=== PATIENT | male | born 1955 | race Caucasian/White ===

== ENCOUNTER 2017-10-07 05:35 | Observation (INO) | payer OTHER ==
[2017-10-07] MEDS ORDERED: NS 1,000 ML IV ONE (05:45)
--- NOTE | 2017-10-07 05:46 | EDPHY ---
H & P Stated Complaint: Lower abd pain. 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 Pain has been persistent it is located in the lower abdomen. Describes achy sensation rather constant and worse this evening. He has not had any vomiting and no diarrhea. Denies urinary symptoms. Denies back pain chest pain or shortness of breath he did have chills. He thinks he may have diverticulitis. His main area pain as across his lower abdomen. States he had a normal bowel movement today. He did not eat anything since 6:30 p.m. Yesterday. Past Medical History: Diverticulitis Past Surgical History: No recent surgery Social History: Denies drugs alcohol tobacco Family History: Noncontributory ROS REVIEW OF SYSTEMS: A comprehensive 10 point review of systems is otherwise negative aside from elements mentioned in the history of present illness. Exam Constitutional he appears well nontoxic no acute distress, triage nursing summary reviewed, vital signs reviewed, awake/alert. Eyes normal conjunctivae and sclera, EOMI, PERRLA. HENT normal inspection, atraumatic, moist mucus membranes, no epistaxis, neck supple/ no meningismus, no raccoon eyes. Respiratory clear to auscultation bilaterally, normal breath sounds, no respiratory distress, no wheezing. Cardiovascular rate normal, regular rhythm, no murmur, no edema, distal pulses normal. Gastrointestinal mild tender palpation lower abdomen and right lower quadrant and left lower quadrant and suprapubic, no peritoneal signs, no rebound, no guarding, normal bowel sounds, no distension, no pulsatile mass. Genitourinary no CVA tenderness. Musculoskeletal no midline vertebral tenderness, full range of motion, no calf swelling, no tenderness of extremities, no meningismus, good pulses, neurovascularly intact. Skin pink, warm, & dry, no rash, skin atraumatic. Neurologic awake, alert and oriented x 3, AAOx3, moves all 4 extremities equally, motor intact, sensory intact, CN II-XII intact, normal cerebellar, normal vision, normal speech. Psychiatric normal mood/affect. Heme/Lymph/Immune no lymphadenopathy. Differential diagnosis includes but is not limited to and in no particular order : Bowel obstruction, appendicitis, gallbladder disease, diverticulitis, colitis , enteritis, perforated viscus, gastritis, GERD, esophagitis, urinary tract infection, pyelonephritis, kidney stones Medical Decision Making: Plan for this patient IV establishment with blood draw , IV fluids 1 L normal saline, IV Dilaudid for pain control IV Zofran 4 mg for nausea, basic blood work, CT scan abdomen pelvis with IV contrast rule out diverticulitis. Re-evaluation: CT abdomen pelvis with IV contrast called to me by Dr. Yarbrough. Shows acute diverticulitis. Uncomplicated. No perforation no abscess no free fluid. Particular ice to the side colon. Given patient's age, pain, he will be admitted to the hospital today for IV antibiotics bowel rest and pain control. He is agreeable this plan. I will consult hospitalist service for admit her acute diverticulitis. Source: Patient - Personal History Current Tetanus/Diphtheria Vaccine: No Current Tetanus Diphtheria and Acellular Pertussis (TDAP): No - Medical/Surgical History Hx Asthma: No Hx Chronic Respiratory Disease: No Hx Diabetes: No Hx Cardiac Disease: No Hx Renal Disease: No Hx Cirrhosis: No Hx Alcoholism: No Hx HIV/AIDS: No Hx Splenectomy or Spleen Trauma: No Other PMH: Diverticulitis, HTN. - Social History Smoking Status: Never smoked Constitutional: Initial Vital Signs Temperature (C) 36.3 C 10/07/17 05:37 Heart Rate 104 H 10/07/17 05:37 Respiratory Rate 16 10/07/17 05:37 Blood Pressure 136/80 H 10/07/17 05:37 O2 Sat (%) 93 10/07/17 05:37 O2 Delivery Mode Room Air Allergies/Adverse Reactions: Penicillins Allergy (Verified 10/07/17 08:23) Hives Home Medications: Medication Instructions Recorded Aspirin [Aspirin 81mg (*)] 81 mg PO DAILY 10/07/17 Cholecalciferol Vit D3 [Vitamin D3 2,000 units PO DAILY 10/07/17 2000 units tab (OTC)] Clobetasol Propionate 1 yoan TP HS PRN 10/07/17 Herbals/Supplements -Info Only 1 ea PO DAILY 10/07/17 Hydrochlorothiazide [HCTZ (*)] 12.5 mg PO DAILY 10/07/17 Ibuprofen [Motrin (*)] 400 mg PO DAILY PRN 10/07/17 Ketoconazole 2% [Nizoral Shampoo 1 yoan TP DAILY PRN 10/07/17 (*)] Lansoprazole [Prevacid] 15 mg PO DAILY 10/07/17 Lisinopril [Zestril 10 mg (*)] 10 mg PO BID 10/07/17 Metoprolol Succinate Xr [Toprol Xl 50 mg PO DAILY 10/07/17 50 mg (*)] Naproxen Sodium [Aleve 220 MG (*)] 220 mg PO BID PRN 10/07/17 [place]-3 Fatty Acids [Fish Oil 1000 1,000 mg PO BID 10/07/17 mg (*)] Rosuvastatin Calcium [Crestor 20mg 20 mg PO HS 10/07/17 (*)] Medical Decision Making - Data Points Laboratory Results: Laboratory Results 10/07/17 06:03 10/07/17 06:03 Medications Given: Hydromorphone HCl (Dilaudid) 2 mg PO Q4HRS PRN PRN Reason: Pain, Severe Able to Take PO Stop: 10/17/17 06:39 Last Admin: 10/07/17 14:28 Dose: 2 mg Hydromorphone/Sodium Chloride (Hydromorphone) 0.2 - 0.4 mg IVP Q4HRS PRN PRN Reason: Pain, Severe Unable to Take PO Stop: 10/17/17 06:39 Last Admin: 10/07/17 18:20 Dose: 0.4 mg Potassium Chloride/Sodium Chloride (Ns W/ 20 Kcl/L) 1,000 mls @ 100 mls/hr IV CONT FRACISCO Stop: 04/05/18 06:44 Last Admin: 10/07/17 19:20 Dose: 1,000 mls Ciprofloxacin/Dextrose (Cipro 400 Mg (Premix)) 200 mls @ 200 mls/hr IV Q12HRS FRACISCO PRN Reason: Protocol Stop: 11/06/17 20:59 Last Admin: 10/07/17 20:00 Dose: 200 mls Lisinopril (Zestril) 10 mg PO BID [facility] Stop: 04/05/18 20:59 Last Admin: 10/07/17 20:00 Dose: 10 mg Naproxen (Aleve) 220 mg PO BID PRN PRN Reason: Pain, Mild Stop: 04/05/18 15:41 Last Admin: 10/07/17 18:19 Dose: 220 mg Qpmeg-6-Hlib Ethyl Esters (Fish Oil) 1,000 mg PO BID [facility]IS[facility] Stop: 04/05/18 20:59 Last Admin: 10/07/17 20:00 Dose: 1,000 mg Rosuvastatin Calcium (Crestor) 20 mg PO HS [facility] Stop: 04/05/18 20:59 Last Admin: 10/07/17 20:02 Dose: 20 mg Discontinued Medications Hydromorphone HCl (Dilaudid) 0.5 mg IVP EDNOW ONE Stop: 10/07/17 05:52 Last Admin: 10/07/17 06:31 Dose: 0.5 mg Sodium Chloride (Ns) 1,000 mls @ 0 mls/hr IV EDNOW ONE; Wide Open PRN Reason: Protocol Stop: 10/07/17 05:46 Last Admin: 10/07/17 06:07 Dose: 1,000 mls Ceftriaxone Sodium/Dextrose (Rocephin 1 Gm (Premix)) 50 mls @ 100 mls/hr IV EDNOW ONE PRN Reason: Protocol Stop: 10/07/17 07:01 Last Admin: 10/07/17 06:38 Dose: 50 mls Metronidazole/Sodium Chloride (Flagyl 500 Mg (Premix)) 100 mls @ 100 mls/hr IV EDNOW ONE PRN Reason: Protocol Stop: 10/07/17 07:31 Last Admin: 10/07/17 07:18 Dose: 100 mls Ondansetron HCl (Zofran) 4 mg IVP EDNOW ONE Stop: 10/07/17 05:52 Last Admin: 10/07/17 06:09 Dose: 4 mg Departure - Departure Disposition: [facility] Inpatient Acute Clinical Impression: Acute diverticulitis Condition: Fair
[2017-10-07] MEDS ORDERED: HYDROmorphONE/DILAUDID 2 MG/ML INJ IVP ONE (05:51)
[2017-10-07] MEDS ORDERED: ONDANSETRON 4 MG/2 ML VIAL IVP ONE (05:51)
[2017-10-07] MEDS ORDERED: IOPAMIDOL (ISOVUE-300) 100 ML BTL ONE (06:01)
[2017-10-07 06:12] LABS: PLATELET COUNT 176 10^3/uL (150-400)
[2017-10-07 06:19] LABS: INR 1.09 (0.83-1.16); PROTIME(PATIENT) 14.3 SEC (12.0-15.0)
[2017-10-07] MEDS ORDERED: PROMETHAZINE HCL 25 MG/ML INJ IVP PRN (06:40)
[2017-10-07] MEDS ORDERED: ONDANSETRON 4 MG/2 ML VIAL IVP PRN (06:40)
[2017-10-07] MEDS ORDERED: ONDANSETRON DISINTEGRATING 4 MG TAB PO PRN (06:40)
[2017-10-07] MEDS ORDERED: ACETAMINOPHEN 325 MG TAB PO PRN (06:40)
--- NOTE | 2017-10-07 07:04 | PDGENHP ---
History and Physical - Chief Complaint Abdominal pain - History of Present Illness 62 yo M w/ HTN presents w/ abdominal pain. He has had lower abdominal pain for 2 days. This morning upon waking it was much worse so he came to the ED instead of going to work. He has had several prior episodes of diverticulitis but has never had pain this severe. CT scan in the ED confirms uncomplicated diverticulitis. He admits to chills but does not think he has been frankly febrile. He was able to keep some rice down last evening but has been nauseous since. History Information - Allergies/Home Medication List Allergies/Adverse Reactions: Penicillins Allergy (Verified 10/07/17 05:41) Home Medications: Aspirin 81mg (*) 10/07/17 [Last Taken Unknown] Clobetasol 0.05% 10/07/17 [Last Taken Unknown] Crestor 10/07/17 [Last Taken Unknown] Hydrochlorothiazide 10/07/17 [Last Taken Unknown] Lisinopril 10/07/17 [Last Taken Unknown] Metoprolol Succinate 10/07/17 [Last Taken Unknown] Prevacid 10/07/17 [Last Taken Unknown] I have personally reviewed and updated: family history, medical history - Past Medical History hypertension - Surgical History Reports: no pertinent surgical hx - Family History Positive for: CAD - Social History Smoking Status: Never smoked Review of Systems Review of Systems: ROS: 10pt was reviewed & negative except for what was stated in HPI & below Physical Exam Physical Exam: Temp Pulse Resp BP Pulse Ox 36.3 C 104 H 16 136/80 H 97 10/07/17 05:37 10/07/17 05:37 10/07/17 05:37 10/07/17 05:37 10/07/17 06:40 O2 (L/minute) 2 Constitutional: no apparent distress, not in pain Eyes: PERRL, EOMI Ears, Nose, Mouth, Throat: moist mucous membranes, no oral mucosal ulcers Cardiovascular: regular rate and rhythym, no murmur, rub, or gallop Respiratory: no respiratory distress, no rales or rhonchi Gastrointestinal: normoactive bowel sounds, tenderness (RLQ, LLQ), No guarding, No rebound, No distension Skin: warm, normal color Musculoskeletal: full muscle strength, no muscle tenderness Neurologic: AAOx3, CN II-XII Intact Psychiatric: interacting appropriately, not anxious Lab Data & Imaging Review 10/07/17 06:03 10/07/17 06:03 WBC 14.49 10^3/uL (3.80-9.50) H 10/07/17 06:03 RBC 4.66 10^6/uL (4.40-6.38) 10/07/17 06:03 Hgb 15.7 g/dL (13.7-17.5) 10/07/17 06:03 POC Hgb 16.0 gm/dL (13.7-17.5) 10/07/17 06:09 Hct 44.3 % (40.0-51.0) 10/07/17 06:03 POC Hct 47 % (40-51) 10/07/17 06:09 MCV 95.1 fL (81.5-99.8) 10/07/17 06:03 MCH 33.7 pg (27.9-34.1) 10/07/17 06:03 MCHC 35.4 g/dL (32.4-36.7) 10/07/17 06:03 RDW 12.2 % (11.5-15.2) 10/07/17 06:03 Plt Count 176 10^3/uL (150-400) 10/07/17 06:03 MPV 10.8 fL (8.7-11.7) 10/07/17 06:03 Neut % (Auto) 87.7 % (39.3-74.2) H 10/07/17 06:03 Lymph % (Auto) 5.9 % (15.0-45.0) L 10/07/17 06:03 Gage % (Auto) 5.2 % (4.5-13.0) 10/07/17 06:03 Eos % (Auto) 0.6 % (0.6-7.6) 10/07/17 06:03 Baso % (Auto) 0.3 % (0.3-1.7) 10/07/17 06:03 Nucleat RBC Rel Count 0.0 % (0.0-0.2) 10/07/17 06:03 Absolute Neuts (auto) 12.70 10^3/uL (1.70-6.50) H 10/07/17 06:03 Absolute Lymphs (auto) 0.86 10^3/uL (1.00-3.00) L 10/07/17 06:03 Absolute Monos (auto) 0.75 10^3/uL (0.30-0.80) 10/07/17 06:03 Absolute Eos (auto) 0.09 10^3/uL (0.03-0.40) 10/07/17 06:03 Absolute Basos (auto) 0.04 10^3/uL (0.02-0.10) 10/07/17 06:03 Absolute Nucleated RBC 0.00 10^3/uL (0-0.01) 10/07/17 06:03 Immature Gran % 0.3 % (0.0-1.1) 10/07/17 06:03 Immature Gran # 0.05 10^3/uL (0.00-0.10) 10/07/17 06:03 PT 14.3 SEC (12.0-15.0) 10/07/17 06:03 INR 1.09 (0.83-1.16) 10/07/17 06:03 APTT 27.2 SEC (23.0-38.0) 10/07/17 06:03 VBG Lactic Acid 2.0 mmol/L (0.7-2.1) 10/07/17 06:04 POC Sodium 137 mEq/L (135-145) 10/07/17 06:09 Sodium 137 mEq/L (135-145) 10/07/17 06:03 POC Potassium 3.5 mEq/L (3.3-5.0) 10/07/17 06:09 Potassium 3.8 mEq/L (3.5-5.2) 10/07/17 06:03 POC Chloride 99 mEq/L (97-110) 10/07/17 06:09 Chloride 101 mEq/L (97-110) 10/07/17 06:03 Carbon Dioxide 26 mEq/l (22-31) 10/07/17 06:03 Anion Gap 10 mEq/L (8-16) 10/07/17 06:03 POC BUN 23 mg/dL (7-23) 10/07/17 06:09 BUN 23 mg/dL (7-23) 10/07/17 06:03 Creatinine 0.9 mg/dL (0.7-1.3) 10/07/17 06:03 POC Creatinine 1.0 mg/dL (0.7-1.3) 10/07/17 06:09 Estimated GFR > 60 10/07/17 06:03 Glucose 133 mg/dL (70-100) H 10/07/17 06:03 POC Glucose 142 mg/dL (70-100) H 10/07/17 06:09 Calcium 9.5 mg/dL (8.5-10.4) 10/07/17 06:03 Total Bilirubin 1.2 mg/dL (0.1-1.4) 10/07/17 06:03 Conjugated Bilirubin 0.4 mg/dL (0.0-0.5) 10/07/17 06:03 Unconjugated Bilirubin 0.8 mg/dL (0.0-1.1) 10/07/17 06:03 AST 37 IU/L (17-59) 10/07/17 06:03 ALT 45 IU/L (21-72) 10/07/17 06:03 Alkaline Phosphatase 60 IU/L (38-126) 10/07/17 06:03 Total Protein 7.0 g/dL (6.3-8.2) 10/07/17 06:03 Albumin 4.1 g/dL (3.5-5.0) 10/07/17 06:03 Lipase 180 IU/L (23-300) 10/07/17 06:03 Assessment & Plan Assessment: 62 yo M presenting w/ abdominal pain found to have acute diverticulitis. Plan: 1. Acute diverticulitis - Uncomplicated per discussion with ED physician Dr. Tello, although final CT read is pending. He has had several prior episodes of diverticulitis, never complicated or requiring surgery. - Clear liquid diet, ADAT - mIVF w/ K, anti-emetics PRN - Dilaudid PO/IV for pain control 2. HTN - Continue home medications Diet - Clears, ADAT Code - Full Ppx - SCDs Dispo - Admit under observation status
--- NOTE | 2017-10-07 07:07 | PDGENHP ---
History and Physical - Chief Complaint Abdomina - History of Present Illness History Information - Allergies/Home Medication List Allergies/Adverse Reactions: Penicillins Allergy (Verified 10/07/17 05:41) Home Medications: Aspirin 81mg (*) 10/07/17 [Last Taken Unknown] Clobetasol 0.05% 10/07/17 [Last Taken Unknown] Crestor 10/07/17 [Last Taken Unknown] Hydrochlorothiazide 10/07/17 [Last Taken Unknown] Lisinopril 10/07/17 [Last Taken Unknown] Metoprolol Succinate 10/07/17 [Last Taken Unknown] Prevacid 10/07/17 [Last Taken Unknown] - Social History Smoking Status: Never smoked Review of Systems Review of Systems: Physical Exam Physical Exam: Temp Pulse Resp BP Pulse Ox 36.3 C 104 H 16 136/80 H 97 10/07/17 05:37 10/07/17 05:37 10/07/17 05:37 10/07/17 05:37 10/07/17 06:40 O2 (L/minute) 2 Lab Data & Imaging Review 10/07/17 06:03 10/07/17 06:03 WBC 14.49 10^3/uL (3.80-9.50) H 10/07/17 06:03 RBC 4.66 10^6/uL (4.40-6.38) 10/07/17 06:03 Hgb 15.7 g/dL (13.7-17.5) 10/07/17 06:03 POC Hgb 16.0 gm/dL (13.7-17.5) 10/07/17 06:09 Hct 44.3 % (40.0-51.0) 10/07/17 06:03 POC Hct 47 % (40-51) 10/07/17 06:09 MCV 95.1 fL (81.5-99.8) 10/07/17 06:03 MCH 33.7 pg (27.9-34.1) 10/07/17 06:03 MCHC 35.4 g/dL (32.4-36.7) 10/07/17 06:03 RDW 12.2 % (11.5-15.2) 10/07/17 06:03 Plt Count 176 10^3/uL (150-400) 10/07/17 06:03 MPV 10.8 fL (8.7-11.7) 10/07/17 06:03 Neut % (Auto) 87.7 % (39.3-74.2) H 10/07/17 06:03 Lymph % (Auto) 5.9 % (15.0-45.0) L 10/07/17 06:03 [place] % (Auto) 5.2 % (4.5-13.0) 10/07/17 06:03 Eos % (Auto) 0.6 % (0.6-7.6) 10/07/17 06:03 Baso % (Auto) 0.3 % (0.3-1.7) 10/07/17 06:03 Nucleat RBC Rel Count 0.0 % (0.0-0.2) 10/07/17 06:03 Absolute Neuts (auto) 12.70 10^3/uL (1.70-6.50) H 10/07/17 06:03 Absolute Lymphs (auto) 0.86 10^3/uL (1.00-3.00) L 10/07/17 06:03 Absolute Monos (auto) 0.75 10^3/uL (0.30-0.80) 10/07/17 06:03 Absolute Eos (auto) 0.09 10^3/uL (0.03-0.40) 10/07/17 06:03 Absolute Basos (auto) 0.04 10^3/uL (0.02-0.10) 10/07/17 06:03 Absolute Nucleated RBC 0.00 10^3/uL (0-0.01) 10/07/17 06:03 Immature Gran % 0.3 % (0.0-1.1) 10/07/17 06:03 Immature Gran # 0.05 10^3/uL (0.00-0.10) 10/07/17 06:03 PT 14.3 SEC (12.0-15.0) 10/07/17 06:03 INR 1.09 (0.83-1.16) 10/07/17 06:03 APTT 27.2 SEC (23.0-38.0) 10/07/17 06:03 VBG Lactic Acid 2.0 mmol/L (0.7-2.1) 10/07/17 06:04 POC Sodium 137 mEq/L (135-145) 10/07/17 06:09 Sodium 137 mEq/L (135-145) 10/07/17 06:03 POC Potassium 3.5 mEq/L (3.3-5.0) 10/07/17 06:09 Potassium 3.8 mEq/L (3.5-5.2) 10/07/17 06:03 POC Chloride 99 mEq/L (97-110) 10/07/17 06:09 Chloride 101 mEq/L (97-110) 10/07/17 06:03 Carbon Dioxide 26 mEq/l (22-31) 10/07/17 06:03 Anion Gap 10 mEq/L (8-16) 10/07/17 06:03 POC BUN 23 mg/dL (7-23) 10/07/17 06:09 BUN 23 mg/dL (7-23) 10/07/17 06:03 Creatinine 0.9 mg/dL (0.7-1.3) 10/07/17 06:03 POC Creatinine 1.0 mg/dL (0.7-1.3) 10/07/17 06:09 Estimated GFR > 60 10/07/17 06:03 Glucose 133 mg/dL (70-100) H 10/07/17 06:03 POC Glucose 142 mg/dL (70-100) H 10/07/17 06:09 Calcium 9.5 mg/dL (8.5-10.4) 10/07/17 06:03 Total Bilirubin 1.2 mg/dL (0.1-1.4) 10/07/17 06:03 Conjugated Bilirubin 0.4 mg/dL (0.0-0.5) 10/07/17 06:03 Unconjugated Bilirubin 0.8 mg/dL (0.0-1.1) 10/07/17 06:03 AST 37 IU/L (17-59) 10/07/17 06:03 ALT 45 IU/L (21-72) 10/07/17 06:03 Alkaline Phosphatase 60 IU/L (38-126) 10/07/17 06:03 Total Protein 7.0 g/dL (6.3-8.2) 10/07/17 06:03 Albumin 4.1 g/dL (3.5-5.0) 10/07/17 06:03 Lipase 180 IU/L (23-300) 10/07/17 06:03 Assessment & Plan Assessment: Acute diverticulitis (Acute)
[2017-10-07] MEDS: NS W/ 20 KCl/L 1,000 ML IV SCH ×2 (09:45→19:20)
[2017-10-07] MEDS: HYDROmorphone HCL/NS 0.5 MG/ML SYR IVP PRN ×2 (10:40→18:20)
[2017-10-07] MEDS: HYDROmorphONE/DILAUDID 2 MG TAB PO PRN ×2 (14:28→22:07)
[2017-10-07] MEDS ORDERED: KETOCONAZOLE 2% 120 ML SHAMPOO TP PRN (15:42)
[2017-10-07] MEDS ORDERED: CLOBETASOL PROPIONATE TP PRN (15:42)
[2017-10-07] MEDS ORDERED: CLOBETASOL 0.05% 15 GM CRTUBE TP PRN (15:53)
[2017-10-07] MEDS: NAPROXEN SODIUM 220 MG TAB PO PRN (18:19)
[2017-10-07] MEDS: LISINOPRIL 10 MG TAB PO SCH (20:00)
[2017-10-07] MEDS: OMEGA-3 FATTY ACIDS 1,000 MG CAP PO SCH (20:00)
[2017-10-07] MEDS: CIPROFLOXACIN 400 MG/DEXTROSE 200 ML IV SCH (20:00)
[2017-10-07] MEDS ORDERED: ROSUVASTATIN CALCIUM 20 MG TAB PO SCH (21:00)
[2017-10-08] MEDS: NAPROXEN SODIUM 220 MG TAB PO PRN ×2 (01:51→08:11)
[2017-10-08 07:57] VITALS: BP 112/72
[2017-10-08] MEDS: LISINOPRIL 10 MG TAB PO SCH (08:10)
[2017-10-08] MEDS: OMEGA-3 FATTY ACIDS 1,000 MG CAP PO SCH (08:11)
[2017-10-08] MEDS: NS W/ 20 KCl/L 1,000 ML IV SCH (08:12)
[2017-10-08] MEDS: CIPROFLOXACIN 400 MG/DEXTROSE 200 ML IV SCH (08:21)
[2017-10-08] MEDS ORDERED: Herbals/Supplements -Info Only PO SCH (09:00)
[2017-10-08] MEDS ORDERED: HYDROCHLOROTHIAZIDE 12.5 MG CAP PO SCH (09:00)
[2017-10-08] MEDS ORDERED: PANTOPRAZOLE SODIUM 40 MG TAB PO SCH (09:00)
[2017-10-08] MEDS ORDERED: ASPIRIN 81 MG CHEWABLE TAB PO SCH (09:00)
[2017-10-08] MEDS ORDERED: CHOLECALCIFEROL VIT D3 2,000 UNITS TAB/CAP PO SCH (09:00)
[2017-10-08] MEDS ORDERED: NON-FORMULARY NEW DRUG (Lansoprazole [Prevacid] 15 MG) PO SCH (09:00)
[2017-10-08] MEDS ORDERED: METOPROLOL SUCCINATE XR 50 MG TAB PO SCH (09:00)
--- NOTE | 2017-10-08 09:11 | ASMTCMCOM ---
CM Note CM Note Notes: Patient admitted for abdominal pain and diagnosed with acute diverticulitis. He is being observed on a clear liquid diet, IV fluids, and pain medications. Patient is normally independent, lives with , and is employed. I do not anticipate any discharge needs. Date Signed: 10/08/2017 09:11 AM Electronically Signed By:Enid Lai RN
--- NOTE | 2017-10-08 09:13 | HOSPPROG ---
Hospitalist Progress Note Assessment/Plan: 62 yo M w diverticulitis home today see dc summary Objective: Vital Signs Temp Pulse Resp BP Pulse Ox 36.5 C 75 18 112/72 94 10/08/17 07:55 10/08/17 08:11 10/08/17 07:55 10/08/17 08:12 10/08/17 07:55 10/07/17 10/08/17 10/09/17 05:59 05:59 05:59 Intake Total 3900 Balance 3900 PT 14.3 SEC (12.0-15.0) 10/07/17 06:03 INR 1.09 (0.83-1.16) 10/07/17 06:03 - Physical Exam Constitutional: no apparent distress, appears nourished Eyes: PERRL, anicteric sclera Ears, Nose, Mouth, Throat: moist mucous membranes, hearing normal Cardiovascular: regular rate and rhythym, no murmur, rub, or gallop Respiratory: no respiratory distress, no rales or rhonchi Gastrointestinal: normoactive bowel sounds, soft, non-tender abdomen Genitourinary: no bladder fullness, No basurto in urethra Skin: warm, normal color Musculoskeletal: full muscle strength Neurologic: AAOx3, sensation intact bilaterally Psychiatric: interacting appropriately ICD10 Worksheet Patient Problems: Problems Problem Status Onset Acute diverticulitis Acute
[2017-10-08] MEDS ORDERED: NAPROXEN SODIUM 220 MG TAB PO ONE (10:15)
--- NOTE | 2017-10-09 02:17 | GDS ---
[f rep st] DISCHARGE SUMMARY DISCHARGE DIAGNOSES: Mild sigmoid diverticulitis. Please see admission history and physical by Dr. Hernan Lopez. Patient presented with left l ower quadrant pain. It sounds like he has had episodes of diverticulitis he has managed at home with out antibiotics, just liquids and NSAIDs. The patient presented. He had a leukocytosis. He was not febrile. He did have abdominal pain without peritoneal signs. He had a CT scan showing mild sigmoi d diverticulitis. He was started on ceftriaxone, Flagyl, transition to Cipro, Flagyl. Discharged ho me today after tolerating a good diet. He was given warning signs to come back. /[id number]/MODL
== END 2017-10-08 11:52 | disposition home or self-care (01) ==
LOC: F1N 09:26
PROVIDERS: ADMIT Student in an Organized Health Care Education/Training Program; ATTEND Internal Medicine
DX: K57.32 Diverticulitis of large intestine without perforation or abscess without bleeding (principal); E86.9 Volume depletion, unspecified; I10 Essential (primary) hypertension; Z82.49 Family history of ischemic heart disease and other diseases of the circulatory system; Z88.0 Allergy status to penicillin
CPT/HCPCS: 74177; 96361; 96374; 96375; 99285; G0378; 82947-QW; J0696; J0744; J1170; J2405; Q9967

== ENCOUNTER 2017-10-10 17:20 | Inpatient (IN) | payer OTHER ==
[2017-10-10] MEDS ORDERED: NS 1,000 ML IV ONE (18:21)
--- NOTE | 2017-10-10 18:21 | EDPHY ---
H & P Stated Complaint: N/V/D abd bloating contiues--10/08/17 diverticulitus - Medical/Surgical History Hx Asthma: No Hx Chronic Respiratory Disease: No Hx Diabetes: No Hx Cardiac Disease: No Hx Renal Disease: No Hx Cirrhosis: No Hx Alcoholism: No Hx HIV/AIDS: No Hx Splenectomy or Spleen Trauma: No Other PMH: Diverticulitis, HTN. - Social History Smoking Status: Never smoked Time Seen by Provider: 10/10/17 18:07 HPI/ROS: CHIEF COMPLAINT: Abdominal pain nausea vomiting diarrhea HISTORY OF PRESENT ILLNESS: 62-year-old male history of recurrent diverticulitis discharged from the hospital 2 days ago for mild sigmoid diverticulitis without perforation and/or abscess, returns to the ER stating that he has had progressive abdominal pain since being discharged. He had solid bowel movements upon discharge and notes that he has new diarrhea, new abdominal distension, new diffuse abdominal pain, nausea, vomiting. He has been unable to tolerate his antibiotics. He last ate 3 saltine crackers at 7: 00 a.m. This morning. Denies: Fever, chills, back pain, urinary abnormality. REVIEW OF SYSTEMS: A ten point review of systems was performed and is negative with the exception of the items mentioned in the HPI PAST MEDICAL & SURGICAL HISTORY: Recurrent diverticulitis. SOCIAL HISTORY: Nonsmoker PHYSICAL EXAM (Prior to examination, patient consented to physical exam, hands were washed and my usual and customary physical exam procedures followed) 1) GENERAL: Well-developed, well-nourished, alert and oriented. Appears to be in no acute distress. 2) HEAD: Normocephalic, atraumatic 3) HEENT: Pupils equal, round, reactive to light bilaterally. Sclera anicteric. Nasopharynx, oropharynx, clear, no lesions. Dry mucous membranes 4) NECK: Full range of motion, no meningeal signs. 5) LUNGS: Clear auscultation bilaterally, no wheezes, no rhonchi, no retractions. 6) HEART: Regular rate and rhythm, no murmur, no heave, no gallop. 7) ABDOMEN: Distended, diffusely tender to palpation all quadrants 8) MUSCULOSKELETAL: Moving all extremities, no focal areas of tenderness, no obvious trauma. No peripheral edema or discoloration. 9) BACK: No CVA tenderness, no midline vertebral tenderness, no fluctuance, no step-off, no obvious trauma, no visual or palpable abnormality. 10) SKIN: No rash, no petechiae. 11) Psychiatric: Patient is oriented X 3, there is no agitation. DIFFERENTIAL DIAGNOSIS: In no particular include but limited to intra- abdominal abscess, perforation, diverticulitis (Erum,Yousuf Claudia) Constitutional: Initial Vital Signs Temperature (C) 36.6 C 10/10/17 17:25 Heart Rate 108 H 10/10/17 17:25 Respiratory Rate 16 10/10/17 17:25 Blood Pressure 126/83 H 10/10/17 17:25 O2 Sat (%) 96 10/10/17 17:25 O2 Delivery Mode Room Air Allergies/Adverse Reactions: Penicillins Allergy (Verified 10/07/17 08:23) Hives Home Medications: Medication Instructions Recorded Aspirin [Aspirin 81mg (*)] 81 mg PO DAILY 10/07/17 Cholecalciferol Vit D3 [Vitamin D3 2,000 units PO DAILY 10/07/17 2000 units tab (OTC)] Herbals/Supplements -Info Only 1 ea PO DAILY 10/07/17 Hydrochlorothiazide [HCTZ (*)] 12.5 mg PO DAILY 10/07/17 Lansoprazole [Prevacid] 15 mg PO DAILY 10/07/17 Lisinopril [Zestril 10 mg (*)] 10 mg PO BID 10/07/17 Metoprolol Succinate Xr [Toprol Xl 50 mg PO DAILY 10/07/17 50 mg (*)] Rosuvastatin Calcium [Crestor 20mg 20 mg PO HS 10/07/17 (*)] Ciprofloxacin [Cipro] 500 mg PO BID #20 tab 10/08/17 metroNIDAZOLE [Flagyl 500 mg (*)] 500 mg PO TID #30 tab 10/08/17 Medical Decision Making ED Course/Re-evaluation: 6:20 p.m.: I reviewed the patient's old medical records and discussed case with secondary supervising physician Dr. Juliette Juarez in the ER. This patient is complaining of new diarrhea perc new, progressive diffuse abdominal pain which is very different than what he presents to the emergency department with. Expressed the patient my concerns that he may have perforation and/or abscess. In addition he has been unable to tolerate his oral antibiotics. He will be given IV ceftriaxone and Flagyl in the emergency department. Will plan on likely admission. 7:00 p.m.: Patient was re-evaluated with serial examinations, he is continuing to complain of diffuse abdominal pain. I recommended CT imaging of the abdomen and pelvis to evaluate for possible intra-abdominal abscess or perforation 7:45 p.m.: CT of abdomen pelvis foreign language interpreter radiologist shows new mesenteric free air, new intra-abdominal abscess. Patient has already received IV antibiotics. Will consult with on-call surgery. 7:55 p.m.: Consultation with Dr. Gresham who will admit patient, plan on taking patient the operating room this evening.. Patient remains NPO since 7: 00 a.m. Today (Yousuf Danielson) Other Provider: The patient was evaluated and managed by the Physician Regulatory Compliance Specialist. I discussed the patient's presentation and course with the physician medication assistant and agree with the evaluation. My co-signature indicates that I have reviewed this chart and I agree with the findings and plan of care as documented. I am the secondary supervising physician. (Juliette Juarez) - Data Points Laboratory Results: Laboratory Results 10/10/17 18:37 10/10/17 18:37 Microbiology Results: MICROBIOLOGY 10/10/17 22:08 Peritoneal Fluid - Anaerobic Tube/Swab Gram Stain - Final 10/10/17 22:08 Peritoneal Fluid - Anaerobic Tube/Swab Anaerobic Culture - Preliminary Escherichia Coli Enterococcus Faecium Bacteroides [facility] Medications Given: Acetaminophen (Tylenol) 650 mg PO Q4HRS PRN PRN Reason: Pain, Mild/Fever, Can Take PO Stop: 04/08/18 23:41 Last Admin: 10/11/17 10:34 Dose: 650 mg Aspirin (Aspirin) 81 mg PO DAILY FRACISCO Stop: 04/10/18 08:59 Last Admin: 10/12/17 08:19 Dose: 81 mg Hydrochlorothiazide (Microzide) 12.5 mg PO DAILY FRACISCO Stop: 04/10/18 08:59 Last Admin: 10/12/17 08:18 Dose: 12.5 mg Hydromorphone/Sodium Chloride (Hydromorphone) 0.5 mg IVP Q2 PRN PRN Reason: SEVERE PAIN, CAN'T TAKE PO Stop: 10/21/17 22:33 Last Admin: 10/12/17 17:22 Dose: 0.5 mg Potassium Chloride/Dextrose/Sod Cl (D5w 1/2 Ns W/ 20 Kcl/L) 1,000 mls @ 100 mls /hr IV CONT FRACISCO Stop: 04/08/18 23:44 Last Admin: 10/12/17 17:23 Dose: 1,000 mls Ceftriaxone Sodium/Dextrose (Rocephin 1 Gm (Premix)) 50 mls @ 100 mls/hr IV DAILY FRACISCO PRN Reason: Protocol Stop: 11/10/17 08:59 Last Admin: 10/12/17 08:18 Dose: 50 mls Metronidazole/Sodium Chloride (Flagyl 500 Mg (Premix)) 100 mls @ 100 mls/hr IV Q8HRS FRACISCO PRN Reason: Protocol Stop: 11/10/17 05:59 Last Admin: 10/12/17 15:05 Dose: 100 mls Lisinopril (Zestril) 10 mg PO BID FRACISCO Stop: 04/09/18 20:59 Last Admin: 10/12/17 08:19 Dose: 10 mg Metoprolol Succinate (Toprol Xl) 50 mg PO DAILY FRACISCO Stop: 04/10/18 08:59 Last Admin: 10/12/17 08:19 Dose: 50 mg Ondansetron HCl (Zofran) 4 mg IVP Q4HRS PRN PRN Reason: Nausea/Vomiting, Can't Take PO Stop: 04/08/18 23:41 Last Admin: 10/12/17 17:22 Dose: 4 mg Ondansetron HCl (Zofran Odt) 4 mg PO Q4HRS PRN PRN Reason: Nausea/Vomiting, Use 1st Stop: 04/08/18 23:41 Last Admin: 10/11/17 20:17 Dose: 4 mg Oxycodone HCl (Oxycodone Ir) 5 - 10 mg PO Q3HRS PRN PRN Reason: Pain, Severe Able to Take PO Stop: 10/20/17 23:41 Last Admin: 10/11/17 18:58 Dose: 10 mg Pantoprazole Sodium (Protonix) 40 mg IVP DAILY FRACISCO Stop: 04/09/18 16:14 Last Admin: 10/12/17 08:18 Dose: 40 mg Promethazine HCl (Phenergan) 6.25 - 12.5 mg IVP Q6HRS PRN PRN Reason: Nausea/Vomiting, Use 2nd Stop: 04/08/18 23:41 Last Admin: 10/12/17 04:44 Dose: 12.5 mg Discontinued Medications Bupivacaine HCl (Sensorcaine 0.25% Sdv) Confirm Administered Dose 30 ml .ROUTE .STK-MED ONE Stop: 10/10/17 21:06 Last Admin: 10/10/17 22:23 Dose: 30 ml Epinephrine HCl (Epinephrine) Confirm Administered Dose 1 mg .ROUTE .STK-MED ONE Stop: 10/10/17 21:06 Last Admin: 10/10/17 22:24 Dose: 1 mg Ceftriaxone Sodium/Dextrose (Rocephin 1 Gm (Premix)) 50 mls @ 100 mls/hr IV EDNOW ONE PRN Reason: Protocol Stop: 10/10/17 18:47 Last Admin: 10/10/17 18:50 Dose: 50 mls Metronidazole/Sodium Chloride (Flagyl 500 Mg (Premix)) 100 mls @ 100 mls/hr IV ONCE ONE PRN Reason: Protocol Stop: 10/10/17 19:17 Last Admin: 10/10/17 19:38 Dose: 100 mls Sodium Chloride (Ns) 1,000 mls @ 0 mls/hr IV ONCE ONE PRN Reason: Wide Open Stop: 10/10/17 18:22 Last Admin: 10/10/17 18:49 Dose: 1,000 mls Lactated Ringer's (Lr) 1,000 mls @ 0 mls/hr IV ONCE ONE PRN Reason: KVO Stop: 10/10/17 21:19 Last Admin: 10/10/17 21:20 Dose: 1,000 mls Sodium Chloride (Ns) 1,000 mls @ 0 mls/hr IV ONCE ONE PRN Reason: As Directed Stop: 10/11/17 04:31 Last Admin: 10/11/17 04:31 Dose: 1,000 mls Midazolam HCl (Versed) 2 mg IVP ONCE ONE Stop: 10/10/17 21:24 Last Admin: 10/10/17 21:34 Dose: 2 mg Ondansetron HCl (Zofran) 4 mg IVP EDNOW ONE Stop: 10/10/17 18:43 Last Admin: 10/10/17 18:52 Dose: 4 mg Departure - Departure Disposition: [facility] Inpatient Acute Clinical Impression: Acute diverticulitis, Colonic diverticular abscess, Perforation of viscus Condition: Fair
[2017-10-10] MEDS ORDERED: ONDANSETRON 4 MG/2 ML VIAL IVP ONE (18:42)
[2017-10-10 18:47] LABS: PLATELET COUNT 209 10^3/uL (150-400)
[2017-10-10] MEDS ORDERED: IOPAMIDOL (ISOVUE-300) 100 ML BTL ONE (19:04)
[2017-10-10 20:05] LABS: INR 1.22 (0.83-1.16); PROTIME(PATIENT) 15.6 SEC (12.0-15.0)
--- NOTE | 2017-10-10 20:56 | PDGENHP ---
History and Physical - Chief Complaint abdominal pain - History of Present Illness Patient was admitted here Friday through Friday for diverticulitis. He was treated with IV and transitioned to PO abx. The evening he went home, he c/o worsening pain. He c/o diffuse abdominal pain, nausea, vomiting. Pain is sharp, diffuse, worse with PO intake and palpation. History Information - Allergies/Home Medication List Allergies/Adverse Reactions: Penicillins Allergy (Verified 10/07/17 08:23) Hives Home Medications: Aspirin [Aspirin 81mg (*)] 81 mg PO DAILY 10/07/17 [Last Taken 10/07/17] Cholecalciferol Vit D3 [Vitamin D3 2000 units tab (OTC)] 2,000 units PO DAILY [Last Taken 10/07/17] Clobetasol Propionate 1 yoan TP HS PRN 10/07/17 [Last Taken 10/06/17] Herbals/Supplements -Info Only 1 ea PO DAILY 10/07/17 [Last Taken Unknown] Hydrochlorothiazide [HCTZ (*)] 12.5 mg PO DAILY 10/07/17 [Last Taken 10/07/17] Ketoconazole 2% [Nizoral Shampoo (*)] 1 yoan TP DAILY PRN 10/07/17 [Last Taken Unknown] Lansoprazole [Prevacid] 15 mg PO DAILY 10/07/17 [Last Taken 10/07/17] Lisinopril [Zestril 10 mg (*)] 10 mg PO BID 10/07/17 [Last Taken 10/07/17] Metoprolol Succinate Xr [Toprol Xl 50 mg (*)] 50 mg PO DAILY 10/07/17 [Last Taken 10/07/17] Naproxen Sodium [Aleve 220 MG (*)] 220 mg PO BID PRN 10/07/17 [Last Taken 03:30] [place]-3 Fatty Acids [Fish Oil 1000 mg (*)] 1,000 mg PO BID 10/07/17 [Last Taken 10/07/17] Rosuvastatin Calcium [Crestor 20mg (*)] 20 mg PO HS 10/07/17 [Last Taken ] I have personally reviewed and updated: family history, medical history, social history, surgical history - Past Medical History hypertension - Surgical History Reports: no pertinent surgical hx - Family History Positive for: CAD - Social History Smoking Status: Never smoked 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 Review of Systems Review of Systems: ROS: 10pt was reviewed & negative except for what was stated in HPI & below Physical Exam Physical Exam: Temp Pulse Resp BP Pulse Ox 36.6 C 80 18 131/79 H 92 10/10/17 17:25 10/10/17 19:40 10/10/17 19:40 10/10/17 19:40 10/10/17 19:40 Constitutional: appears nourished, not in pain, other (mild distress) Eyes: PERRL, anicteric sclera, EOMI Ears, Nose, Mouth, Throat: moist mucous membranes, hearing normal, ears appear normal, no oral mucosal ulcers Cardiovascular: regular rate and rhythym, no murmur, rub, or gallop, No edema Respiratory: no respiratory distress, no rales or rhonchi, clear to auscultation Gastrointestinal: other (soft, TTP, rebound tenderness present ) Genitourinary: no bladder fullness, no bladder tenderness Skin: warm, normal color, no rashes or abrasions, no fluctuance, no induration, No mottled Musculoskeletal: full muscle strength, no muscle tenderness, normal joint ROM, no joint effusions Psychiatric: interacting appropriately, not anxious, not encephalopathic, thought process linear Lymph, Heme, Immunologic: no cervical LAD, no supraclavicular LAD Lab Data & Imaging Review 10/10/17 18:37 10/10/17 18:37 WBC 15.21 10^3/uL (3.80-9.50) H 10/10/17 18:37 RBC 4.57 10^6/uL (4.40-6.38) 10/10/17 18:37 Hgb 15.1 g/dL (13.7-17.5) 10/10/17 18:37 Hct 43.0 % (40.0-51.0) 10/10/17 18:37 MCV 94.1 fL (81.5-99.8) 10/10/17 18:37 MCH 33.0 pg (27.9-34.1) 10/10/17 18:37 MCHC 35.1 g/dL (32.4-36.7) 10/10/17 18:37 RDW 12.2 % (11.5-15.2) 10/10/17 18:37 Plt Count 209 10^3/uL (150-400) 10/10/17 18:37 MPV 11.0 fL (8.7-11.7) 10/10/17 18:37 Neut % (Auto) 84.1 % (39.3-74.2) H 10/10/17 18:37 Lymph % (Auto) 6.9 % (15.0-45.0) L 10/10/17 18:37 [place] % (Auto) 7.1 % (4.5-13.0) 10/10/17 18:37 Eos % (Auto) 0.9 % (0.6-7.6) 10/10/17 18:37 Baso % (Auto) 0.3 % (0.3-1.7) 10/10/17 18:37 Nucleat RBC Rel Count 0.0 % (0.0-0.2) 10/10/17 18:37 Absolute Neuts (auto) 12.80 10^3/uL (1.70-6.50) H 10/10/17 18:37 Absolute Lymphs (auto) 1.05 10^3/uL (1.00-3.00) 10/10/17 18:37 Absolute Monos (auto) 1.08 10^3/uL (0.30-0.80) H 10/10/17 18:37 Absolute Eos (auto) 0.14 10^3/uL (0.03-0.40) 10/10/17 18:37 Absolute Basos (auto) 0.04 10^3/uL (0.02-0.10) 10/10/17 18:37 Absolute Nucleated RBC 0.00 10^3/uL (0-0.01) 10/10/17 18:37 Immature Gran % 0.7 % (0.0-1.1) 10/10/17 18:37 Immature Gran # 0.10 10^3/uL (0.00-0.10) 10/10/17 18:37 PT 15.6 SEC (12.0-15.0) H 10/10/17 17:20 INR 1.22 (0.83-1.16) H 10/10/17 17:20 APTT 33.5 SEC (23.0-38.0) 10/10/17 17:20 Sodium 135 mEq/L (135-145) 10/10/17 18:37 Potassium 3.9 mEq/L (3.5-5.2) 10/10/17 18:37 Chloride 95 mEq/L (97-110) L 10/10/17 18:37 Carbon Dioxide 23 mEq/l (22-31) 10/10/17 18:37 Anion Gap 17 mEq/L (8-16) H 10/10/17 18:37 BUN 14 mg/dL (7-23) 10/10/17 18:37 Creatinine 0.9 mg/dL (0.7-1.3) 10/10/17 18:37 Estimated GFR > 60 10/10/17 18:37 Glucose 106 mg/dL (70-100) H 10/10/17 18:37 Calcium 9.2 mg/dL (8.5-10.4) 10/10/17 18:37 Total Bilirubin 1.0 mg/dL (0.1-1.4) 10/10/17 18:37 Conjugated Bilirubin 0.6 mg/dL (0.0-0.5) H 10/10/17 18:37 Unconjugated Bilirubin 0.4 mg/dL (0.0-1.1) 10/10/17 18:37 AST 25 IU/L (17-59) 10/10/17 18:37 ALT 40 IU/L (21-72) 10/10/17 18:37 Alkaline Phosphatase 60 IU/L (38-126) 10/10/17 18:37 Total Protein 6.3 g/dL (6.3-8.2) 10/10/17 18:37 Albumin 3.4 g/dL (3.5-5.0) L 10/10/17 18:37 Lipase 79 IU/L (23-300) 10/10/17 18:37 Visualized and Interpreted imaging results: Yes Interpretation: CT: perforated diverticulitis with abscess. Assessment & Plan Assessment: Acute diverticulitis (Acute) Colonic diverticular abscess (Acute) Perforation of viscus (Acute) Plan: 62yo male with perforated diverticulitis with localized abscess - IV abx now, to OR for ex lap, colectomy, possible colostomy. RBA discussed including the high likelihood for temporary ostomy.
[2017-10-10] MEDS ORDERED: BUPIVACAINE 0.25% 30 ML SDV ONE (21:05)
[2017-10-10] MEDS ORDERED: LR 1,000 ML IV ONE (21:18)
[2017-10-10] MEDS ORDERED: MIDAZOLAM 2 MG/2 ML VIAL IVP ONE (21:23)
--- NOTE | 2017-10-10 21:26 | PDANEPAE ---
ANE History of Present Illness perforated bowel ANE Past Medical History - Cardiovascular History Hx Hypertension: Yes Hx Arrhythmias: No Hx Chest Pain: No Hx Coronary Artery / Peripheral Vascular Disease: No Hx CHF / Valvular Disease: No Hx Palpitations: No - Pulmonary History Hx COPD: No Hx Asthma/Reactive Airway Disease: No Hx Recent Upper Respiratory Infection: No Hx Oxygen in Use at Home: No Hx Sleep Apnea: No - Endocrine History Hx Diabetes: No Hypothyroid: No Hyperthyroid: No - Renal History Hx Renal Disorders: No - Liver History Hx Hepatic Disorders: No - Neurological & Psychiatric Hx Hx Neurological and Psychiatric Disorders: No - Chronic Pain History Chronic Pain: No ANE Review of Systems Review of Systems: - Exercise capacity Exercise capacity: >=4 METS - Systems Gastrointestinal: Reports: abdominal pain ANE Patient History - Allergies Allergies/Adverse Reactions: Penicillins Allergy (Verified 10/07/17 08:23) Hives - Home Medications Home Medications: Aspirin [Aspirin 81mg (*)] 81 mg PO DAILY 10/07/17 [Last Taken 10/07/17] Cholecalciferol Vit D3 [Vitamin D3 2000 units tab (OTC)] 2,000 units PO DAILY [Last Taken 10/07/17] Clobetasol Propionate 1 yoan TP HS PRN 10/07/17 [Last Taken 10/06/17] Herbals/Supplements -Info Only 1 ea PO DAILY 10/07/17 [Last Taken Unknown] Hydrochlorothiazide [HCTZ (*)] 12.5 mg PO DAILY 10/07/17 [Last Taken 10/07/17] Ketoconazole 2% [Nizoral Shampoo (*)] 1 yoan TP DAILY PRN 10/07/17 [Last Taken Unknown] Lansoprazole [Prevacid] 15 mg PO DAILY 10/07/17 [Last Taken 10/07/17] Lisinopril [Zestril 10 mg (*)] 10 mg PO BID 10/07/17 [Last Taken 10/07/17] Metoprolol Succinate Xr [Toprol Xl 50 mg (*)] 50 mg PO DAILY 10/07/17 [Last Taken 10/07/17] Naproxen Sodium [Aleve 220 MG (*)] 220 mg PO BID PRN 10/07/17 [Last Taken 03:30] [place]-3 Fatty Acids [Fish Oil 1000 mg (*)] 1,000 mg PO BID 10/07/17 [Last Taken 10/07/17] Rosuvastatin Calcium [Crestor 20mg (*)] 20 mg PO HS 10/07/17 [Last Taken ] - NPO status NPO Status: no food or drink >8 hours NPO Since - Liquids (Date): 10/10/17 NPO Since - Liquids (Time): 07:00 NPO Since - Solids (Date): 10/10/17 NPO Since - Solids (Time): 07:00 - Anes Hx Anes Hx: no prior problems - Smoking Hx Smoking Status: Never smoked - Alcohol Use Alcohol Use: None - Family Anes Hx Family Anes Hx: none ANE Labs/Vital Signs - Labs Result Diagrams: 10/10/17 18:37 10/10/17 18:37 - Vital Signs Vital Signs: reviewed preoperatively; see RN documention for details Blood Pressure: 129/82 Heart Rate: 95 Respiratory Rate: 18 O2 Sat (%): 94 Height: 170.18 cm Weight: 104.326 kg ANE Physical Exam - Airway Neck exam: FROM Mallampati Score: Class 2 - Pulmonary Pulmonary: no respiratory distress - Cardiovascular Cardiovascular: regular rate and rhythym - ASA Status ASA Status: II, E ANE Anesthesia Plan Anesthesia Plan: general endotracheal anesthesia
[2017-10-10] MEDS ORDERED: MIDAZOLAM 2 MG/2 ML VIAL ONE (21:27)
[2017-10-10] MEDS ORDERED: PROPOFOL 200 MG/20 ML VIAL ONE (21:32)
[2017-10-10] MEDS ORDERED: LIDOCAINE 2% 5 ML SDV ONE (21:32)
[2017-10-10] MEDS ORDERED: fentaNYL 100 MCG/2 ML INJ ONE (21:32)
[2017-10-10] MEDS ORDERED: ROCURONIUM 100 MG/10 ML VIAL ONE (21:32)
[2017-10-10] MEDS ORDERED: ONDANSETRON 4 MG/2 ML VIAL ONE (21:56)
[2017-10-10] MEDS ORDERED: DEXAMETHASONE 4 MG/ML VIAL ONE (21:56)
[2017-10-10] MEDS ORDERED: HYDROmorphONE/DILAUDID 2 MG/ML INJ ONE (22:10)
[2017-10-10] MEDS ORDERED: KETOROLAC 30 MG/1 ML SDV ONE (23:12)
[2017-10-10] MEDS ORDERED: SUGAMMADEX SODIUM 200 MG/2 ML VIAL IVP ONE (23:12)
[2017-10-10] MEDS ORDERED: IBUPROFEN 200 MG TAB PO PRN (23:42)
[2017-10-10] MEDS ORDERED: ACETAMINOPHEN 325 MG TAB PO PRN (23:42)
--- NOTE | 2017-10-10 23:42 | POSTOPPROG ---
Post Op Note Date of Operation: 10/10/17 Surgeon: Johnson Gresham Anesthesiologist: Alan Anesthesia: GET(General Endotracheal) Pre-op Diagnosis: Perforated diverticulitis Post-op Diagnosis: same Procedure: ex-lap, sigmoid colectomy with anastomosis Findings: small pelvic abscess, washed out Inf/Abcess present in the surg proc area at time of surgery?: Yes Depth: Organ Space EBL: 50-100 Total fluids administered: 3000cc NS washout Drains: Jayme House Specimen(s): sigmoid colon anastomotic rings
[2017-10-10] MEDS ORDERED: PROMETHAZINE HCL 25 MG/ML INJ IVP PRN (23:45)
[2017-10-10] MEDS ORDERED: NALOXONE HCL 0.4 MG/ML INJ IVP PRN (23:45)
[2017-10-10] MEDS ORDERED: fentaNYL 100 MCG/2 ML INJ IVP PRN (23:45)
[2017-10-10] MEDS ORDERED: MEPERIDINE 25 MG/ML SYR IVP PRN (23:45)
[2017-10-10] MEDS ORDERED: HYDROmorphONE/DILAUDID 2 MG/ML INJ IVP PRN (23:45)
[2017-10-10] MEDS ORDERED: ALBUTEROL 3 ML DEYVIAL IH PRN (23:45)
[2017-10-10] MEDS ORDERED: ONDANSETRON 4 MG/2 ML VIAL IVP PRN (23:45)
--- NOTE | 2017-10-10 23:45 | POSTANESTH ---
Post Anesthetic Evaluation Cardiovascular Status: Normal, Stable Respiratory Status: Normal, Stable Level of Consciousness/Mental Status: Mildly Sleepy, Arousable Pain Control: Adequate, Prn Tx Ordered Nausea/Vomiting Control: Adequate, Prn Tx Ordered Complications Possibly Related to Anesthesia: None Noted
--- NOTE | 2017-10-11 00:03 | PDMN ---
Medical Necessity Medical necessity: C/M review: Patient meets INPT criteria [place] [id number] Bowel Surgery: Colectomy, Partial, with or without Ostomy: Acute perforated diverticulitis with localized colonic diverticulosis, perforation of viscous seen on CT requiring emergent surgery - exploratory laparotomy, small pelvic abscess washed out, sigmoid colectomy with anastomosis - inpatient per Medicare guidelines, ongoing postop IV Ceftriaxone QD, IV Flagyl Q 8 hrs. IV D5W 1/2 NS with 20 meq KCl 100 ml/hr. infusion, comorbid observation hospitalization 2017 - 10/08/2017 for diverticulitis treated with IV antibiotics transitioned to oral; antibiotics. MD anticipates > 2 MN LOS for ongoing med nec for eval and TX of above.
[2017-10-11] MEDS: D5W 1/2 NS W/ 20 KCl/L 1,000 ML IV SCH ×3 (01:56→18:58)
[2017-10-11] MEDS: oxyCODONE IR 5 MG TAB PO PRN ×4 (04:01→18:58)
[2017-10-11] MEDS ORDERED: NS BOLUS 1000 ML IV ONE (04:30)
--- NOTE | 2017-10-11 08:24 | SOAPPROG ---
SOAP Progress Note Assessment/Plan: Assessment/Plan: - 62-year-old male status post sigmoid colectomy for perforated diverticulitis Patient is doing well this morning, his pain appears well controlled. He has taken some clears and as tolerated that well. His abdomen is appropriately distended and appropriately tender. His BRIA is serosanguineous with an appropriate output. Plan will be to encourage ambulation today, as well as oral intake. Continue IV antibiotics. Cultures pending. 10/11/17 08:24 Subjective: Doing well, pain controlled. Objective: Vital Signs Temp Pulse Resp BP Pulse Ox 37.5 C 76 16 118/79 94 10/11/17 08:00 10/11/17 08:00 10/11/17 08:00 10/11/17 08:00 10/11/17 08:00 10/10/17 10/11/17 10/12/17 05:59 05:59 05:59 Intake Total 4120 Output Total 685 Balance 3435 PT 15.6 SEC (12.0-15.0) H 10/10/17 17:20 INR 1.22 (0.83-1.16) H 10/10/17 17:20 ICD10 Worksheet Patient Problems: Problems Problem Status Onset Acute diverticulitis Acute Colonic diverticular abscess Acute Perforation of viscus Acute
--- NOTE | 2017-10-11 14:11 | ASMTCMCOM ---
CM Note CM Note Notes: Pt admitted for abdominal pain, nausea, vomiting, and acute diverticulitis with a localized abscess. Per MD notes, pt is POD #1 s/p a sigmoid colectomy with anastomosis. BRIA drain in place. Pt has a history of HTN. Pt was discharged home independently from [facility] on 10/07/17 after being treated for diverticulitis. Pt is and lives with his . He is a business residential pest control technician. Discharge needs remain unclear. No PT/OT orders at this time. CM will continue to follow for any potential needs. Current Discharge Plan: To be determined Date Signed: 10/11/2017 02:11 PM Electronically Signed By:Fanny Bell RN
[2017-10-11] MEDS: PANTOPRAZOLE SODIUM 40 MG VIAL IVP SCH (16:54)
[2017-10-11] MEDS: ONDANSETRON DISINTEGRATING 4 MG TAB PO PRN (20:17)
[2017-10-11] MEDS: LISINOPRIL 10 MG TAB PO SCH (20:17)
[2017-10-11] MEDS: ONDANSETRON 4 MG/2 ML VIAL IVP PRN (22:13)
[2017-10-11] MEDS: HYDROmorphone HCL/NS 0.5 MG/ML SYR IVP PRN (22:45)
[2017-10-11] MEDS: PROMETHAZINE HCL 25 MG/ML INJ IVP PRN (22:50)
[2017-10-12] MEDS: HYDROmorphone HCL/NS 0.5 MG/ML SYR IVP PRN ×10 (00:49→23:18)
[2017-10-12] MEDS: ONDANSETRON 4 MG/2 ML VIAL IVP PRN ×4 (02:23→17:22)
[2017-10-12] MEDS: PROMETHAZINE HCL 25 MG/ML INJ IVP PRN ×2 (04:44→23:18)
[2017-10-12] MEDS: D5W 1/2 NS W/ 20 KCl/L 1,000 ML IV SCH ×2 (05:04→17:23)
[2017-10-12 05:19] LABS: PLATELET COUNT 215 10^3/uL (150-400)
[2017-10-12] MEDS: HYDROCHLOROTHIAZIDE 12.5 MG CAP PO SCH (08:18)
[2017-10-12] MEDS: PANTOPRAZOLE SODIUM 40 MG VIAL IVP SCH (08:18)
[2017-10-12] MEDS: ASPIRIN 81 MG CHEWABLE TAB PO SCH (08:19)
[2017-10-12] MEDS: LISINOPRIL 10 MG TAB PO SCH ×2 (08:19→20:16)
[2017-10-12] MEDS: METOPROLOL SUCCINATE XR 50 MG TAB PO SCH (08:19)
--- NOTE | 2017-10-12 11:01 | SOAPPROG ---
S[facility] Progress Note Assessment/Plan: Assessment/Plan: - 62-year-old male status post sigmoid colectomy for perforated diverticulitis Patient is doing well this morning, had some abdominal distention yesterday after getting a little too aggressive with diet. We have subsequently backed off the clears, he does have some hypoactive bowel sounds today. He is not passing any flatus or having a bowel movements. Await bowel function, discussed ambulation 10/11/17 08:24 10/12/17 11:00 Subjective: Distention improved Objective: Vital Signs Temp Pulse Resp BP Pulse Ox 36.9 C 85 16 130/89 H 96 10/12/17 07:58 10/12/17 07:58 10/12/17 07:58 10/12/17 07:58 10/12/17 07:58 Laboratory Results 10/12/17 04:46 10/12/17 04:46 10/11/17 10/12/17 10/13/17 05:59 05:59 05:59 Intake Total 4120 1482 1036 Output Total 685 3985 40 Balance 3435 -2503 996 PT 15.6 SEC (12.0-15.0) H 10/10/17 17:20 INR 1.22 (0.83-1.16) H 10/10/17 17:20 ICD10 Worksheet Patient Problems: Problems Problem Status Onset Acute diverticulitis Acute Colonic diverticular abscess Acute Perforation of viscus Acute
--- NOTE | 2017-10-12 12:05 | GOP ---
[f rep st] OPERATIVE REPORT DATE OF OPERATION: 10/10/2017 SURGEON: Johnson Gresham MD WARD MAID: None. ANESTHESIA: General endotracheal. ANESTHESIOLOGIST: Dr. Syed Phillips. PREOPERATIVE DIAGNOSIS: Perforated diverticulitis. POSTOPERATIVE DIAGNOSIS: Perforated diverticulitis, Hinchey Grade 2 PROCEDURE PERFORMED: 1. Exploratory laparotomy. 2. Sigmoid colectomy with primary anastomosis. 3. Abdominal washout. FINDINGS: Patient had an isolated pelvic abscess in the right pelvis consistent with imaging. The remainder of the patient's sigmoid colon and rectum, aside from the diseased portion, was relatively healthy. 29 mm EEA anastomosis successfully performed with a negative leak test x3. SPECIMENS: Sigmoid colon with anastomotic rings. ESTIMATED BLOOD LOSS: 50 cc. DESCRIPTION OF PROCEDURE: The patient was greeted in the preoperative suite. Once again, risks, benefits, and alternatives were discussed. Consent was signed. He was then brought back to the operative suite, placed on the OR table in supine position. After all anesthesia machines, including SCDs, were on and functioning, a [employer] time-out was performed. After successful induction of general anesthesia, the patient was placed in a low lithotomy position with all pressure points appropriately padded. His abdomen and rectal area were prepped and draped in typical sterile fashion. I entered the abdomen via a midline incision, and carried this down through the subcutaneous tissue and entered the abdomen sharply. After successfully packing off the patient's small bowel, I did identify the patient's pelvic abscess in the right lower quadrant, a portion of which was taken for cultures. I successfully evacuated this. I identified the area of concern in the mid sigmoid colon. I dissected distal to this initially. I created a mesenteric defect and a distal portion of healthy sigmoid colon, and successfully amputated it using a single fire of the green contour stapler. I then carried my dissection up through the mesentery using the Harmonic Scalpel, and identified an area in the distal descending colon which was healthy and would provide adequate anastomosis. I then amputated the colon at this site, and passed off the specimen. I then mobilized the descending colon via the white line of Toldt up to the level of the splenic flexure without having to actually mobilize the entire splenic flexure. I had adequate length with the distal descending colon dropping into the pelvis without issue. I then irrigated the patient's abdomen with 3 L sterile saline noting clear effluent in the suction canister. I then inspected both ends of my descending and distal sigmoid colon. Both were pink and appeared viable. I opened up my distal descending colon, through which I placed the anvil and closed it in a pursestring fashion. I then brought the stapler through the patient's rectum and successfully anastomosed it to the distal descending colon, noting 2 solid anastomotic rings on back table examination. A leak test was then performed which was negative x3. A BRIA was then brought out through a separate stab incision in the patient' s right lower quadrant. It was allowed to lay in the pelvis adjacent to the anastomosis. It was attached to the skin via a separate silk suture. Gloves, gowns were changed. Clean closure was then provided. The patient's fascia was reapproximated with a #1 PDS in a running fashion, noting excellent fascial reapproximation. Subcutaneous tissue was irrigated with sterile saline. It was then reapproximated with a running 3-0 Vicryl stitch. The skin was then closed with iain. A sterile dressing was placed. The patient was then extubated in the operative suite and taken to the PACU in satisfactory condition. DRAINS: 10-Indian flat BRIA into the pelvis. COUNTS: All counts were reported as correct x2. /[id number]/MODL MTDD
[2017-10-12] MEDS: ONDANSETRON DISINTEGRATING 4 MG TAB PO PRN (21:24)
[2017-10-12] MEDS: TEMAZEPAM 15 MG CAP PO SCH (21:43)
[2017-10-13] MEDS: HYDROmorphone HCL/NS 0.5 MG/ML SYR IVP PRN (01:35)
[2017-10-13] MEDS: D5W 1/2 NS W/ 20 KCl/L 1,000 ML IV SCH ×2 (04:42→16:37)
[2017-10-13] MEDS: ONDANSETRON 4 MG/2 ML VIAL IVP PRN ×3 (05:07→19:30)
[2017-10-13] MEDS: PROMETHAZINE HCL 25 MG/ML INJ IVP PRN (05:57)
[2017-10-13] MEDS: KETOROLAC 30 MG/1 ML SDV IVP PRN ×3 (07:52→20:58)
[2017-10-13] MEDS: PANTOPRAZOLE SODIUM 40 MG VIAL IVP SCH (08:01)
--- NOTE | 2017-10-13 09:01 | SOAPPROG ---
SOAP Progress Note Assessment/Plan: Assessment/Plan: - 62-year-old male status post sigmoid colectomy for perforated diverticulitis - VSS, HDS, isolated tachy after walking - abdomen is distended without any appreciable bowel sounds. ileus vs pSBO. KUB pending. May need NGT if stomach distended, discussed with patient. Have made NPO for the meantime - check labs - ambulate 10/11/17 08:24 10/12/17 11:00 10/13/17 09:00 Subjective: worse distention Objective: Vital Signs Temp Pulse Resp BP Pulse Ox 37.1 C 87 18 120/79 93 10/13/17 07:39 10/13/17 07:39 10/13/17 07:39 10/13/17 07:39 10/13/17 07:39 Laboratory Results 10/12/17 04:46 10/12/17 04:46 10/12/17 10/13/17 10/14/17 05:59 05:59 05:59 Intake Total 8362 3236 Output Total 0561 3380 530 Balance -2503 -144 -530 PT 15.6 SEC (12.0-15.0) H 10/10/17 17:20 INR 1.22 (0.83-1.16) H 10/10/17 17:20 ICD10 Worksheet Patient Problems: Problems Problem Status Onset Acute diverticulitis Acute Colonic diverticular abscess Acute Perforation of viscus Acute
[2017-10-13 09:56] LABS: PLATELET COUNT 225 10^3/uL (150-400)
[2017-10-13] MEDS: METOPROLOL SUCCINATE XR 50 MG TAB PO SCH (11:47)
[2017-10-13] MEDS: HYDROCHLOROTHIAZIDE 12.5 MG CAP PO SCH (11:47)
[2017-10-13] MEDS: ASPIRIN 81 MG CHEWABLE TAB PO SCH (11:48)
[2017-10-13] MEDS: LISINOPRIL 10 MG TAB PO SCH ×2 (11:48→20:59)
[2017-10-13] MEDS: TEMAZEPAM 15 MG CAP PO SCH ×2 (20:59→23:52)
[2017-10-14] MEDS: KETOROLAC 30 MG/1 ML SDV IVP PRN ×2 (03:42→10:49)
[2017-10-14] MEDS: ONDANSETRON 4 MG/2 ML VIAL IVP PRN ×3 (03:50→13:41)
[2017-10-14] MEDS: PANTOPRAZOLE SODIUM 40 MG VIAL IVP SCH (07:46)
[2017-10-14] MEDS: METOPROLOL SUCCINATE XR 50 MG TAB PO SCH (07:53)
[2017-10-14] MEDS: HYDROCHLOROTHIAZIDE 12.5 MG CAP PO SCH (07:53)
[2017-10-14] MEDS: ASPIRIN 81 MG CHEWABLE TAB PO SCH (07:53)
[2017-10-14] MEDS: LISINOPRIL 10 MG TAB PO SCH ×2 (07:53→21:16)
--- NOTE | 2017-10-14 10:22 | SOAPPROG ---
SOAP Progress Note Assessment/Plan: Assessment/Plan: - 62-year-old male status post sigmoid colectomy for perforated diverticulitis - VSS, HDS - abdominal distention much improved today, he is passing flatus and taking a small amt of ice chips. - plan to cont chips until he has a BM, continue ambulation - likely advance diet later today versus tomorrow. 10/11/17 08:24 10/12/17 11:00 10/13/17 09:00 10/14/17 10:21 Subjective: doing mch better today, passing flatus Objective: Vital Signs Temp Pulse Resp BP Pulse Ox 37.4 C 77 18 117/73 92 10/14/17 07:31 10/14/17 07:31 10/14/17 07:31 10/14/17 07:31 10/14/17 07:31 Laboratory Results 10/13/17 09:46 10/13/17 09:46 10/13/17 10/14/17 10/15/17 05:59 05:59 05:59 Intake Total 3236 3300 Output Total 3380 2310 435 Balance -144 990 -435 PT 15.6 SEC (12.0-15.0) H 10/10/17 17:20 INR 1.22 (0.83-1.16) H 10/10/17 17:20 ICD10 Worksheet Patient Problems: Problems Problem Status Onset Acute diverticulitis Acute Colonic diverticular abscess Acute Perforation of viscus Acute
--- NOTE | 2017-10-14 14:12 | ASMTCMCOM ---
CM Note CM Note Notes: CM spoke w/ Mian RN regarding d/c POC. Pt has no identified needs at this time. CM available for changes. Plan: Independent Date Signed: 10/14/2017 02:11 PM Electronically Signed By:ALEKSANDRA Archer
[2017-10-14] MEDS: D5W 1/2 NS W/ 20 KCl/L 1,000 ML IV SCH (15:48)
[2017-10-14] MEDS: TEMAZEPAM 15 MG CAP PO SCH (21:15)
[2017-10-15] MEDS: TEMAZEPAM 15 MG CAP PO SCH ×2 (00:07→21:12)
[2017-10-15] MEDS: KETOROLAC 30 MG/1 ML SDV IVP PRN (00:07)
[2017-10-15] MEDS: D5W 1/2 NS W/ 20 KCl/L 1,000 ML IV SCH (00:10)
[2017-10-15] MEDS: LISINOPRIL 10 MG TAB PO SCH ×2 (08:46→21:12)
[2017-10-15] MEDS: METOPROLOL SUCCINATE XR 50 MG TAB PO SCH (08:47)
[2017-10-15] MEDS: HYDROCHLOROTHIAZIDE 12.5 MG CAP PO SCH (08:48)
[2017-10-15] MEDS: ASPIRIN 81 MG CHEWABLE TAB PO SCH (08:48)
[2017-10-15] MEDS: PANTOPRAZOLE SODIUM 40 MG VIAL IVP SCH (08:49)
[2017-10-15] MEDS ORDERED: KETOROLAC 15 MG/1 ML SDV IVP PRN (16:00)
--- NOTE | 2017-10-15 21:43 | SOAPPROG ---
SOAP Progress Note Assessment/Plan: Assessment: s/p sigmoid colectomy 6 BM today DC IVF advance diet will transition to oral antibiotics S: Feeling much better. Gas and stool mix. O: Incision cdi Softer BS present sitting up in chair, pleasant Plan: 10/15/17 21:41 10/15/17 21:43 Objective: Vital Signs Temp Pulse Resp BP Pulse Ox 37.0 C 84 16 143/77 H 93 10/15/17 20:00 10/15/17 20:00 10/15/17 20:00 10/15/17 21:12 10/15/17 20:00 Laboratory Results 10/13/17 09:46 10/13/17 09:46 10/14/17 10/15/17 10/16/17 05:59 05:59 05:59 Intake Total 3300 3140 480 Output Total 2310 1315 60 Balance 990 1825 420 PT 15.6 SEC (12.0-15.0) H 10/10/17 17:20 INR 1.22 (0.83-1.16) H 10/10/17 17:20 ICD10 Worksheet Patient Problems: Problems Problem Status Onset Acute diverticulitis Acute Colonic diverticular abscess Acute Perforation of viscus Acute
[2017-10-15] MEDS: metroNIDAZOLE 500 MG TAB PO SCH (22:47)
[2017-10-16] MEDS: metroNIDAZOLE 500 MG TAB PO SCH (05:49)
[2017-10-16 07:47] VITALS: BP 127/75
[2017-10-16] MEDS: METOPROLOL SUCCINATE XR 50 MG TAB PO SCH (08:53)
[2017-10-16] MEDS: LISINOPRIL 10 MG TAB PO SCH (08:53)
--- NOTE | 2017-10-16 08:53 | PDDCSUM ---
Discharge Summary Discharge Summary: DISCHARGE SUMMARY Date of Admission October 10 Date of Discharge October 16 DISCHARGE DIAGNOSES -perforated Hinchey grade 2 diverticulitis status post exploratory laparotomy sigmoid colectomy HOSPITAL COURSE The patient was admitted from the ED and taken to the operating room where they underwent an uneventful exploratory laparotomy, abdominal washout, sigmoid colectomy and primary anastomosis. They were subsequently taken to the PACU and then the general medical floor. The hospital course was uneventful, he did have an ileus which resolved uneventfully. Their diet was advanced to a regular diet which was well tolerated and their pain was well controlled. They were discharged home in stable condition on DISCHARGE MEDICATIONS New medications include sulfa, oxycodone as needed for pain. He will resume his Flagyl through Friday DISPOSITION Home FOLLOW UP Follow up with me in the office in 10-14 days for a general post-operative visit
[2017-10-16] MEDS: ASPIRIN 81 MG CHEWABLE TAB PO SCH (08:54)
[2017-10-16] MEDS: HYDROCHLOROTHIAZIDE 12.5 MG CAP PO SCH (08:54)
[2017-10-16] MEDS: PANTOPRAZOLE SODIUM 40 MG VIAL IVP SCH (08:54)
== END 2017-10-16 12:14 | disposition home or self-care (01) | DRG 330 ==
LOC: EEVIPCON 23:42 → OBSVTOIN 23:42 → F3E 10-11 00:29
PROVIDERS: ADMIT Surgery; ATTEND Surgery
PROC: 0DBN0ZZ Excision of Sigmoid Colon, Open Approach (ICD-10-PCS; principal; 2017-10-10 21:15)
DX: K57.20 Diverticulitis of large intestine with perforation and abscess without bleeding (principal); I10 Essential (primary) hypertension; K56.7 Ileus, unspecified
CPT/HCPCS: 96365; J0171; J0696; J1100; J1170; J1885; J2250; J2405; J2550; J2704; J3010; Q9967